=== PATIENT | female | born 1980 | race Caucasian/White ===

== ENCOUNTER 2017-12-21 22:57 | Emergency (ER) | payer OTHER ==
[2017-12-21] MEDS ORDERED: HYDRALAZINE HCL 10 MG TABLET ONE (23:08)
[2017-12-21] MEDS ORDERED: MECLIZINE HCL 12.5 MG TAB ONE (23:18)
[2017-12-22] MEDS ORDERED: ONDANSETRON 4 MG (ODT) TAB ONE (00:31)
--- NOTE | 2017-12-22 01:18 | EDPHYS ---
Physician Documentation [facility] Name: Lizette Hatch Age: 37 yrs Sex: Female : 1980 Arrival Date: 12/21/2017 Time: 22:58 Bed 6 Private MD: ED Physician Ilan Ricketts HPI: 12/22 06:30 This 37 yrs old Female presents to ER via Ambulatory with complaints of tw4 Dizziness. 06:30 The patient presents with dizziness, sense of spinning. Onset: The symptoms/episode tw4 began/occurred just prior to arrival. Context: occurred at work. Modifying factors: The symptoms are alleviated by nothing, the symptoms are aggravated by nothing. Associated signs and symptoms: The patient has no apparent associated signs or symptoms. Severity of symptoms: At their worst the symptoms were mild in the emergency department the symptoms are unchanged. The patient has been recently seen by a physician: the patient's primary care provider, with similar presenting complaints, lab tests were done, and was referred to a specialist. [employer]: 12/21 23:09 LMP 12/14/2017 lp1 Historical: - Allergies: 23:11 No Known Allergies; lp1 - Home Meds: 23:11 Adderall XR Oral [Active]; lp1 - PMHx: 23:11 ADD/ADHD; lp1 - PSHx: 23:11 None; lp1 - Immunization history:: Adult Immunizations up to date. - Social history:: Smoking status: Patient/guardian denies using tobacco. - Ebola Screening: : No symptoms or risks identified at this time. ROS: 12/22 06:30 Constitutional: Negative for fever, chills, and weight loss, Eyes: Negative for injury, tw4 pain, redness, and discharge, Cardiovascular: Negative for chest pain, palpitations, and edema, Respiratory: Negative for shortness of breath, cough, wheezing, and pleuritic chest pain, Abdomen/GI: Negative for abdominal pain, nausea, vomiting, diarrhea, and constipation, Back: Negative for injury and pain, MS/Extremity: Negative for injury and deformity. Neuro: Positive for dizziness, headache. Exam: 06:30 Constitutional: This is a well developed, well nourished patient who is awake, alert, tw4 and in no acute distress. Head/Face: Normocephalic, atraumatic. Chest/axilla: Normal chest wall appearance and motion. Nontender with no deformity. No lesions are appreciated. Cardiovascular: Regular rate and rhythm with a normal S1 and S2. No gallops, murmurs, or rubs. Normal PMI, no JVD. No pulse deficits. Respiratory: Lungs have equal breath sounds bilaterally, clear to auscultation and percussion. No rales, rhonchi or wheezes noted. No increased work of breathing, no retractions or nasal flaring. Abdomen/GI: Soft, non-tender, with normal bowel sounds. No distension or tympany. No guarding or rebound. No evidence of tenderness throughout. Skin: Warm, dry with normal turgor. Normal color with no rashes, no lesions, and no evidence of cellulitis. MS/ Extremity: Pulses equal, no cyanosis. Neurovascular intact. Full, normal range of motion. Neuro: Awake and alert, GCS 15, oriented to person, place, time, and situation. Cranial nerves II-XII grossly intact. Motor strength 5/5 in all extremities. Sensory grossly intact. Cerebellar exam normal. Normal gait. Vital Signs: 12/21 23:09 BP 153 / 102 LA; lp1 23:09 BP 151 / 103 RA; lp1 23:09 BP 151 / 101; Pulse 72; Resp 16; Temp 97.4(TE); Pulse Ox 100% on R/A; Weight 83.01 kg; lp1 Height 5 ft. 8 in. (172.72 cm); Pain 0/10; 12/22 00:12 BP 137 / 95; Pulse 70; Resp 18; Pulse Ox 99% on R/A; tl2 00:49 BP 136 / 92; Pulse 62; Resp 18; Pulse Ox 98% on R/A; tl2 12/21 23:09 Body Mass Index 27.82 (83.01 kg, 172.72 cm) lp1 MDM: 12/21 23:02 Patient medically screened. tw4 12/22 06:30 Data reviewed: vital signs, nurses notes. Counseling: I had a detailed discussion with tw4 the patient and/or guardian regarding: the historical points, exam findings, and any diagnostic results supporting the discharge/admit diagnosis. Medication response: hydralazine. Response to treatment: the patient's symptoms have markedly improved after treatment, and as a result, I will discharge patient, give anti-hypertensive medication, norvasc. Special discussion: I discussed with the patient/guardian in detail that at this point there is no indication for admission to the hospital. It is understood, however, that if the symptoms persist or worsen the patient needs to return immediately for re-evaluation. 12/21 23:03 Order name: EKG; Complete Time: 23:03 tw4 12/21 23:05 Order name: EKG - Nurse/Tech; Complete Time: 23:18 lp1 Administered Medications: 12/21 23:05 Drug: hydrALAZINE 10 mg Route: PO; lp1 12/22 00:59 Follow up: Response: No adverse reaction; Blood pressure is lowered tl2 12/21 23:18 Drug: Meclizine 12.5 mg Route: PO; tl2 12/22 00:58 Follow up: Response: No adverse reaction; No adverse reaction, dizziness improved tl2 00:25 Drug: Zofran 4 mg Route: PO; tl2 00:59 Follow up: Response: No adverse reaction; Nausea is decreased tl2 Disposition: 12/22/17 00:37 Discharged to Home. Impression: Hypertensive urgency. - Condition is Stable. - Discharge Instructions: Hypertension, [id number], Vertigo, [id number]. - Prescriptions for Norvasc 5 mg Oral Tablet - take 1 tablet by ORAL route once daily; 20 tablet. Zofran 4 mg Oral Tablet - take 1 tablet by ORAL route every 12 hours As needed; 6 tablet. - Medication Reconciliation Form, Thank You Letter, Antibiotic Education, Prescription Opioid Use form. - Work release form (12/22/17 01:01). tl2 - Follow up: Private Physician; When: Upon discharge from the Emergency Department; Reason: Wound Recheck, If symptoms return, Recheck today's complaints, Continuance of care. - Problem is new. - Symptoms have improved. Signatures: Carmen Brady RN RN lp1 Salina Taylor RN RN tl2 Ilan Ricketts MD MD tw4 Corrections: (The following items were deleted from the chart) 00:59 00:37 12/22/2017 00:37 Discharged to Home. Impression: Hypertensive urgency. Condition tl2 is Stable. Forms are Medication Reconciliation Form, Thank You Letter, Antibiotic Education, Prescription Opioid Use. Follow up: Private Physician; When: Upon discharge from the Emergency Department; Reason: Wound Recheck, If symptoms return, Recheck today's complaints, Continuance of care. Problem is new. Symptoms have improved. tw4
--- NOTE | 2017-12-22 01:18 | ER ---
Nurse's Notes [facility] Name: Lizette Hatch Age: 37 yrs Sex: Female : 1980 Arrival Date: 12/21/2017 Time: 22:58 Bed 6 Private MD: Diagnosis: Hypertensive urgency Presentation: 12/21 23:05 Presenting complaint: Patient states: Complaint of dizziness that began 30 min [employer]; lp1 Seen yesterday in another ER for dizziness and hypertension, diagnosed with migraine; patient states dizziness exacerbated by movement. Transition of care: patient was not received from another setting of care. Onset of symptoms was December 21, 2017 at 22:30. Risk Assessment: Do you want to hurt yourself or someone else? Patient reports no desire to harm self or others. Initial Sepsis Screen: Does the patient meet any 2 criteria? No. Patient's initial sepsis screen is negative. Does the patient have a suspected source of infection? No. Patient's initial sepsis screen is negative. Care prior to arrival: None. 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 - Social history:: Smoking status: Patient/guardian denies using tobacco. - Ebola Screening: : No symptoms or risks identified at this time. Screenin:11 Abuse screen: Denies threats or abuse. Denies injuries from another. Nutritional lp1 screening: No deficits noted. Tuberculosis screening: No symptoms or risk factors identified. Fall Risk None identified. Assessment: 23:19 General: Appears in no apparent distress. uncomfortable, Behavior is calm, cooperative, tl2 appropriate for age. Pain: Complains of pain in headache. Neuro: Level of Consciousness is awake, alert, obeys commands, Oriented to person, place, time, situation, Reports dizziness, headache. Cardiovascular: Denies chest pain. Respiratory: Airway is patent Respiratory effort is even, unlabored, Respiratory pattern is regular, symmetrical. GI: No signs and/or symptoms were reported involving the gastrointestinal system. : No signs and/or symptoms were reported regarding the genitourinary system. Derm: Skin is pink, warm \T\ dry. 12/22 00:12 Reassessment: Patient appears in no apparent distress at this time. Patient and/or tl2 family updated on plan of care and expected duration. Pain level reassessed. Patient is alert, oriented x 3, equal unlabored respirations, skin warm/dry/pink. 00:56 Reassessment: Patient appears in no apparent distress at this time. Patient and/or tl2 family updated on plan of care and expected duration. Pain level reassessed. Patient is alert, oriented x 3, equal unlabored respirations, skin warm/dry/pink. Pt verbalized understanding of discharge instructions, need for follow up and prescription usage Patient states feeling better. Vital Signs: 12/21 23:09 BP 153 / 102 LA; lp1 23:09 BP 151 / 103 RA; lp1 23:09 BP 151 / 101; Pulse 72; Resp 16; Temp 97.4(TE); Pulse Ox 100% on R/A; Weight 83.01 kg; lp1 Height 5 ft. 8 in. (172.72 cm); Pain 0/10; 12/22 00:12 BP 137 / 95; Pulse 70; Resp 18; Pulse Ox 99% on R/A; tl2 00:49 BP 136 / 92; Pulse 62; Resp 18; Pulse Ox 98% on R/A; tl2 12/21 23:09 Body Mass Index 27.82 (83.01 kg, 172.72 cm) lp1 ED Course: 12/21 22:58 Patient arrived in ED. tl2 23:02 Ilan Ricketts MD is Attending Physician. tw4 23:09 Triage completed. lp1 23:10 Arm band placed on left wrist. lp1 23:19 Salina Taylor RN is Primary Nurse. tl2 23:19 Patient has correct armband on for positive identification. Bed in low position. Call tl2 light in reach. Side rails up X 1. 12/22 00:56 No provider procedures requiring assistance completed. Patient did not have IV access tl2 during this emergency room visit. Administered Medications: 12/21 23:05 Drug: hydrALAZINE 10 mg Route: PO; lp1 12/22 00:59 Follow up: Response: No adverse reaction; Blood pressure is lowered tl2 12/21 23:18 Drug: Meclizine 12.5 mg Route: PO; tl2 12/22 00:58 Follow up: Response: No adverse reaction; No adverse reaction, dizziness improved tl2 00:25 Drug: Zofran 4 mg Route: PO; tl2 00:59 Follow up: Response: No adverse reaction; Nausea is decreased tl2 Outcome: 00:37 Discharge ordered by . tw4 00:56 Discharged to home ambulatory, with family. tl2 00:56 Condition: stable 00:56 Discharge instructions given to patient, Instructed on discharge instructions, follow up and referral plans. medication usage, Demonstrated understanding of instructions, follow-up care, medications, Prescriptions given X 2. 00:59 Patient left the ED. tl2 Signatures: Carmen Brady RN RN lp1 Salina Taylor RN RN tl2 Ilan Ricketts MD MD tw4 Corrections: (The following items were deleted from the chart) 12/21 23:13 23:09 BP 151 / 101; Pulse 72bpm; Resp 16bpm; Pulse Ox 100% RA; Pain 0/10; lp1 lp1
--- NOTE | 2017-12-22 08:26 | EKG ---
Test Date: 2017-12-21 Test Time: 23:18:17 Department Operations Manager: RENEE MEASUREMENT RESULTS: Intervals: Rate: 63 WA: 162 QRSD: 80 QT: 412 QTc: 421 [place]: P: 32 WA: 162 QRS: 35 T: 30 INTERPRETIVE STATEMENTS: Normal sinus rhythm Normal ECG No previous ECG available for comparison Electronically Signed On 12-22-17 08:25:10 CDT by Rafael Langston
== END 2017-12-22 00:59 | disposition home or self-care (01) ==
LOC: ER 22:57
DX: I16.0 Hypertensive urgency (principal); F90.9 Attention-deficit hyperactivity disorder, unspecified type
CPT/HCPCS: 93005; 99283